=== PATIENT | female | born 1955 | race Two or more races ===

== ENCOUNTER 2023-12-06 14:11 | Outpatient (CLI) | payer OTHER | END 2023-12-06 14:22 | disposition home or self-care (01) | LOC: MAMO-SONO 14:11 | PROVIDERS: ATTEND Internal Medicine | DX: I11.9 Hypertensive heart disease without heart failure (principal); K21.9 Gastro-esophageal reflux disease without esophagitis; M15.9 Polyosteoarthritis, unspecified; M51.86 Other intervertebral disc disorders, lumbar region; M54.14 Radiculopathy, thoracic region; M54.31 Sciatica, right side; M54.50 Low back pain, unspecified; M89.9 Disorder of bone, unspecified; E03.9 Hypothyroidism, unspecified; E11.42 Type 2 diabetes mellitus with diabetic polyneuropathy; E11.51 Type 2 diabetes mellitus with diabetic peripheral angiopathy without gangrene; E11.65 Type 2 diabetes mellitus with hyperglycemia; Z12.31 Encounter for screening mammogram for malignant neoplasm of breast ==

== ENCOUNTER 2023-12-13 13:33 | Outpatient (CLI) | payer OTHER | END 2023-12-13 13:34 | disposition home or self-care (01) | LOC: NUCLEAR 13:33 | PROVIDERS: ATTEND Internal Medicine | DX: M15.9 Polyosteoarthritis, unspecified (principal); M89.9 Disorder of bone, unspecified; M81.0 Age-related osteoporosis without current pathological fracture ==

== ENCOUNTER 2025-04-24 14:49 | Emergency (ER) | payer OTHER ==
[~2025-04-24] VITALS: Ht 165.1 cm; Wt 81.6 kg
[2025-04-24] MEDS ORDERED: LANTUS SOL100 UNIT/1 SUBCUTANEO (16:24)
== END 2025-04-24 17:46 | disposition home or self-care (01) ==
LOC: ER 14:50
DX: Z76.0 Encounter for issue of repeat prescription (principal); Z91.013 Allergy to seafood; Z91.018 Allergy to other foods; E11.9 Type 2 diabetes mellitus without complications; I10 Essential (primary) hypertension; E03.8 Other specified hypothyroidism